=== PATIENT | female | born 1990 | race Hispanic/Latino ===

== ENCOUNTER 2019-07-20 11:45 | Inpatient (IN) ==
[2019-07-20 12:09] LABS: URINE SOURCE CLEAN CATCH
[2019-07-20 12:15] LABS: BILIRUBIN URINE NEGATIVE (NEGATIVE); BLOOD URINE MODERATE (NEGATIVE); COLOR YELLOW; GLUCOSE URINE NEGATIVE (NEGATIVE); KETONE URINE NEGATIVE (NEGATIVE); LEUKOCYTES URINE NEGATIVE (NEGATIVE); NITRITE URINE NEGATIVE (NEGATIVE); PROTEIN URINE 70 mg/dL (NEGATIVE); SP GRAVITY URINE 1.024; TURBIDITY URINE HAZY (CLEAR); UROBILINOGEN URINE NORMAL (NORMAL)
[2019-07-20 12:16] LABS: UR EPITHELIAL CELLS >10 /HPF (<10); URINE BACTERIA NEGATIVE /HPF; URINE RBC 20-40 /HPF (<10); URINE WBC <10 /HPF (<10)
[2019-07-20] MEDS ORDERED: TYLENOL PO ONE ×2 (13:05→18:31)
[2019-07-20] MEDS ORDERED: NS 1,000 ML IV ONE ×2 (13:07→15:17)
[2019-07-20 13:25] LABS: BASO# 0.03 X1000 (0.0-0.2); BASO% 0.2 % (0.0-0.8); EOS# 0.01 X1000 (0.0-0.7); EOS% 0.1 % (0.0-10.0); HEMATOCRIT 35.2 % (37.0-47.0); HEMOGLOBIN 11.1 g/dL (12.0-16.0); IMM GRAN# 0.07 X1000 (0.0-0.04); IMM GRAN% 0.4 % (0.0-0.5); LYMPH# 1.37 X1000 (1.2-3.4); MCHC 31.5 g/dL (33-37); MONO# 0.95 X1000 (0.11-0.59); MONO% 4.9 % (1.7-9.3); MPV 9.9 FL (7.4-10.4); NEUT# 17.14 X1000 (1.4-6.5); NEUT% 87.4 % (42.2-75.2); PLT 295 X1000 (130-400); RBC 4.82 XMIL (4.2-5.4); RDW 15.8 % (11.5-14.5); WBC 19.57 X1000 (4.8-10.8)
--- NOTE | 2019-07-20 13:32 | Diag Imaging Result Doc PS360 ---
EXAM: CHEST-1 VIEW 07/20/2019 HISTORY: fever TECHNIQUE: AP portable upright at 1319 COMMENT: The inspiration is suboptimal. There are no previous studies. IMPRESSION: No evidence of acute disease. Electronically signed by Dev Gomez 07/20/2019 1:30 PM
[2019-07-20 14:00] LABS: AGAP 13; ALBUMIN 4.4 g/dL (3.5-5.0); ALKALINE PHOSPHATASE 142 U/L (32-104); BUN 6 mg/dL (8-22); CALCIUM 9.3 mg/dL (8.8-10.2); CHLORIDE 100 mmol/L (98-107); COSMO 270; CREATININE 0.7 mg/dL (0.5-0.9); ESTIMATED GFR > 60; GLUCOSE 108 mg/dL (70-104); GOT 46 U/L (10-30); GPT 86 U/L (10-36); POTASSIUM 3.6 mmol/L (3.5-5.1); SODIUM 136 mmol/L (136-145); TCO2 23 mmol/L (25-35); TOTAL BILIRUBIN 0.42 mg/dL (0.20-1.00); TOTAL PROTEIN 8.7 g/dL (6.3-8.3)
--- NOTE | 2019-07-20 15:05 | Diag Imaging Result Doc PS360 ---
EXAM: CT ABD/PELVIS W/IV CONT ONLY 07/20/2019 HISTORY: pain, temp 103 TECHNIQUE: This exam was performed using automated exposure control, adjustment of mA or kV according to patient size, and/or use of iterative reconstruction technique. COMMENT: There are no previous studies available for comparison. There are platelike atelectatic changes present in the lung bases particularly the right lower lobe posterior costophrenic sulcus. The liver is slightly hypodense suggesting fatty change. The spleen and adrenal glands are within normal limits. The gallbladder is slightly distended but there is no apparent inflammation and no definite stones are present. The pancreas is unremarkable. There is some fecal debris in the colon without evidence of dilatation. There are some slightly distended jejunal loops in the left abdomen. The duodenum and ileum are not distended. The aorta is not distended. There is no evidence of significant adenopathy. The kidneys are without evidence of hydronephrosis or mass. Pelvis: The appendix is normal in appearance. There is a cyst in the left ovary measuring over 2 cm. No significant free fluid is present. The urinary bladder is slightly distended. There is no evidence of wall thickening or stones. There are changes in the subcutaneous fat over the anterior pelvis suggesting previous Pfannenstiel incision. The regional skeleton is intact. IMPRESSION: 1. Minimal atelectasis right lower lobe. 2. Mild constipation. The possibility of minimal enteritis cannot be excluded. 3. Hepatic steatosis. Electronically signed by Dev Gomez 07/20/2019 3:02 PM
[2019-07-20] MEDS ORDERED: ROCEPHIN 2 GM in NS 50 ML IV ONE (15:24)
--- NOTE | 2019-07-20 16:55 | PROVIDER DOCUMENTATION ---
This chart was entered by Mary Qiu Scribe, acting as scribe for Efren Aguilar MD. HPI-Female /OB/Breast - General Chief Complaint: Abdominal Pain Stated Complaint: STOMACH PAIN Time Seen by Provider: 07/20/19 12:34 Source: reports: deaf interpreter Allergies/Adverse Reactions: Patient Allergies Allergy/AdvReac Type Severity Reaction Status Date / Time No Known Allergies Allergy Verified 07/20/19 16:07 - History of Present Illness-Female /OB Nature of Presenting Problem: Patient is a 29 year old female who presents with generalized lower abdominal pain. States fever and irregular vaginal bleeding with pain. 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 States last menstrual period was 2 weeks ago. Reports being seen at OB clinic prior to arrival. Does patient report she is ?: No Location of complaint: reports: other (generalized lower) Radiation: reports: none Quality of Pain: reports: aching Severity in ED: reports: mild Onset/Duration: reports: unsure Timing: reports: still present Context/Activities at Onset: reports: light activity Vaginal Symptoms: reports: abnormal bleeding Associated Symptoms: reports: fever/chills (fever) Similar Symptoms Previously?: Yes Recently seen or treated by another doctor?: Yes - LMP/ History Menstrual Status: irregular Review of Systems - Adult - REVIEW OF SYSTEMS - ADULT Constitutional: reports: see HPI, fever Eyes: reports: no symptoms reported Ears, Nose, Mouth & Throat: reports: no symptoms reported Cardiovascular: reports: no symptoms reported Respiratory: reports: no symptoms reported Gastrointestinal: reports: see HPI, abdominal pain (generalized lower) Genitourinary: reports: see HPI, other (irregular vaginal bleeding) Musculoskeletal: reports: no symptoms reported Integumentary: reports: no symptoms reported Neurological: reports: no symptoms reported Psychiatric: reports: no symptoms reported Endocrine: reports: no symptoms reported Hematologic/Lymphatic: reports: no symptoms reported Allergic/Immunologic: reports: no symptoms reported All Other Systems: Reviewed and Negative Past History - Adult - PAST MEDICAL HISTORY-ADULT Review of Records: reports: Old Records Reviewed, Nursing Assessment Review, Medications Reviewed, Social history reviewed & non-contributory. Major Childhood Illnesses: reports: denies history Cardiovascular: reports: denies history Respiratory: reports: denies history Gastrointestinal: reports: denies history Obstetrical/Gynecological: reports: denies history Genitourinary: reports: denies history Musculoskeletal: reports: denies history Neurological: reports: denies history Endocrine/Immune: reports: denies history Other Conditions: reports: denies history - PRIOR SURGERIES/PROCEDURES Surgical/Procedure History: reports: reviewed, not pertinent, other (tumor removal from right ovary) - IMMUNIZATION STATUS Childhood Immunizations: See Nurse Assessment Flu Vaccine: See Nurse Assessment - FAMILY HISTORY Family History: reviewed, not pertinent - SOCIAL HISTORY Smoking: denies Substance Use: denies Living Situation: family Physical Exam-General - PHYSICAL EXAM-ADULT Initial Vital Signs Reviewed: Yes - CONSTITUTIONAL General Appearance: alert, no apparent distress - HEAD, EARS, NOSE, MOUTH & THROAT HENMT: normocephalic/atraumatic, moist mucous membranes - RESPIRATORY Respiratory: chest non-tender, lungs clear, normal breath sounds - CARDIOVASCULAR Cardiovascular: regular rate, rhythm - GASTROINTESTINAL (ABDOMEN) Abdominal Exam: normal bowel sounds, non tender, soft - MUSCULOSKELETAL Extremity: non-tender, normal inspection - SKIN Integumentary: normal color, normal turgor, warm/dry - NEUROLOGIC Neurologic: grossly normal - PSYCHIATRIC Psych/Mental Status: normal mood/affect, normal thought content, normal thought process, oriented x 3 Progress - PLAN OF CARE/RESULTS Progress/Plan/Lab Results: Vital Signs - 8 hr 07/20/19 11:48 07/20/19 16:52 Temperature 100.1 F H 98.8 F Pulse Rate 110 H Respiratory Rate 16 Blood Pressure 123/67 O2 Sat by Pulse Oximetry 99 Bedside Urine ED: Urine Bedside Start: 07/20/19 11:57 Freq: NOW Status: Active Protocol: Activity Type Activity Date Activity User E-Sign Co-Sign Detail Recorded Client Recorded Date Recorded By Document 07/20/19 12:05 [id number] 07/20/19 12:05 [id number] 07/20/19 12:05 Point of Care [Bedside Point of Care] -Lot # [id number] - Results Negative -Control Line Visible? Yes 07/20/19 11:55 Influenza Screen - Final Nasopharyngeal Laboratory Results - last 24 hr 07/20/19 07/20/19 07/20/19 12:05 13:08 13:08 WBC 19.57 H RBC 4.82 Hgb 11.1 L Hct 35.2 L MCV 73.0 L MCH 23.0 L MCHC 31.5 L RDW Std Deviation 15.8 H Plt Count 295 MPV 9.9 Immature Gran % (Auto) 0.4 Neut % (Auto) 87.4 H Lymph % (Auto) 7.0 L Sharp % (Auto) 4.9 Eos % (Auto) 0.1 Baso % (Auto) 0.2 Immature Gran # (Auto) 0.07 H Neut # (Auto) 17.14 H Lymph # (Auto) 1.37 Sharp # (Auto) 0.95 H Eos # (Auto) 0.01 Baso # (Auto) 0.03 Sodium 136 Potassium 3.6 Chloride 100 Carbon Dioxide 23 L Anion Gap 13 BUN 6 L Creatinine 0.7 Estimated GFR/1.73 m2 > 60 BUN/Creatinine Ratio 9 Glucose 108 H Calculated Osmolality 270 Calcium 9.3 Total Bilirubin 0.42 AST 46 H ALT 86 H Alkaline Phosphatase 142 H Total Protein 8.7 H Albumin 4.4 Globulin 4.3 Albumin/Globulin Ratio 1.0 Urine Source CLEAN CATCH Urine Color YELLOW Urine Turbidity HAZY Urine pH 6.0 Ur Specific Kersey 1.024 Urine Protein 70 A Ur Glucose (Stick) NEGATIVE Ur Ketones (Stick) NEGATIVE Urine Blood MODERATE A Urine Nitrite NEGATIVE Urine Bilirubin NEGATIVE Urobilinogen Dipstick NORMAL Urine Leukocytes NEGATIVE Urine WBC (Auto) <10 Urine RBC (Auto) 20-40 A U Epithel Cells (Auto) >10 A Urine Bacteria (Auto) NEGATIVE Orders Category Date Time Status NEWS Score 2-4:Order NEWS Lactate Series NOW Care 07/20/19 15:17 Active Pelvic set up DIRECTED Care 07/20/19 12:36 Active UA [ED: Urine Bedside] NOW Care 07/20/19 11:57 Active CHEST-1 VIEW [RAD] Stat Exams 07/20/19 13:[address] ABD/PELVIS W/IV CONT ONLY [CT] Stat Exams 07/20/19 13:05 Completed BLOOD CULTURE [BLDCUL] Stat Lab 07/20/19 15:30 Results CBC WITH DIFF [HEME] Stat Lab 07/20/19 13:08 Completed CMP [COMPREHENSIVE METABOLIC PANEL] [CHEM] Stat Lab 07/20/19 13:08 Completed INFLUENZA SCREEN A/B Stat Lab 07/20/19 11:55 Completed UA NIMS W/REFLEX CULT [URINALYSIS] Stat Lab 07/20/19 12:05 Completed 0.9% Sodium Chloride Inj [Ns] 1,000 ml Med 07/20/19 13:07 Discontinued IV 999 mls/hr 0.9% Sodium Chloride Inj [Ns] 1,000 ml Med 07/20/19 15:17 Discontinued IV 999 mls/hr Acetaminophen [Tylenol] Med 07/20/19 13:05 Discontinued 650 mg PO NOW ONE CefTRIAXONE [Rocephin] 2 gm Med 07/20/19 15:24 Discontinued 0.9% Sodium Chloride Inj [Ns] 50 ml IV NOW Result Diagrams: 07/20/19 13:08 07/20/19 13:08 - REASSESSMENT Reassessment #1 Time Reassessed: 15:16 Status: other (patient is in no distress. tachycardic. lungs clear. abdomen is soft.) - XRAY 1 XRAY Study: Chest Impression: See EMR Report ( EXAM: CHEST-1 VIEW 07/20/2019 HISTORY: fever TECHNIQUE: AP portable upright at 1319 COMMENT: The inspiration is suboptimal. There are no previous studies. IMPRESSION: No evidence of acute disease. Electronically signed by Dev Gomez 07/20/2019 1:30 PM 07/20/19 1330 Interpreting Physician: Dev Gomez MD Dictated Date/Time: 07/20/19 1330 cc: Efren Aguilar MD; None,PCP) - CT/MRI 1 CT Study: Abdomen, Pelvis Impression: See EMR Report ( EXAM: CT ABD/PELVIS W/IV CONT ONLY 07/20/2019 HISTORY: pain, temp 103 TECHNIQUE: This exam was performed using automated exposure control, adjustment of mA or kV according to patient size, and/or use of iterative reconstruction technique. COMMENT: There are no previous studies available for comparison. There are platelike atelectatic changes present in the lung bases particularly the right lower lobe posterior costophrenic sulcus. The liver is slightly hypodense suggesting fatty change. The spleen and adrenal glands are within normal limits. The gallbladder is slightly distended but there is no apparent inflammation and no definite stones are present. The pancreas is unremarkable. There is some fecal debris in the colon without evidence of dilatation. There are some slightly distended jejunal loops in the left abdomen. The duodenum and ileum are not distended. The aorta is not distended. There is no evidence of significant adenopathy. The kidneys are without evidence of hydronephrosis or mass. Pelvis: The appendix is normal in appearance. There is a cyst in the left ovary measuring over 2 cm. No significant free fluid is present. The urinary bladder is slightly distended. There is no evidence of wall thickening or stones. There are changes in the subcutaneous fat over the anterior pelvis suggesting previous Pfannenstiel incision. The regional skeleton is intact. IMPRESSION: 1. Minimal atelectasis right lower lobe. 2. Mild constipation. The possibility of minimal enteritis cannot be excluded. 3. Hepatic steatosis. Electronically signed by Dev Gomez 07/20/2019 3:02 PM 07/20/19 1502 Interpreting Physician: Dev Gomez MD Dictated Date/Time: 07/20/19 1458 cc: Efren Aguilar MD; None,PCP) - CONSULTS/PCP/HOSPITALIST Notification #1 *Consult/PCP/Hospitalist*: ERMA Chavez for Hospitalist Time Discussed: 15:23 Reason/Comments: Dr. Aguilar consulted with Kathy about patient. Consult Disposition: Will see in ED, Admit Departure - Departure Date of Disposition Decision: 07/20/19 Time of Disposition Decision: 15:24 DIAGNOSIS: Abdominal pain, Fever, Leukocytosis Disposition: ADMITTED INPATIENT 09 Certified Medical Emergency: Emergent Condition: Stable Referrals and Follow-Ups: None,PCP [Primary Care Provider] - - Critical Care Note This patient required my direct & personal management of CC.: No Attestation - Physician/ RAHAT Attestation Patient care was provided by Advanced Practice Provider:: No The physician spent face to face time with patient:: Yes Advanced Practice Provider documentation review:: Supervising physician onsite and consulted in the evaluation and care of this patient. The physician did have a face to face encounter with the patient. This chart was documented by the indicated scribe, (Mary Qiu Scribe) and accurately reflects the services I performed and decisions made by me, Efren Aguilar MD, as attested by the provider's signature.
[2019-07-20] MEDS ORDERED: MEFOXIN 2 GM/D5W IV SCH (18:00)
[2019-07-20] MEDS: MEFOXIN 2 GM/D5W 2 GM/50 ML IVPB IV SCH (18:29)
[2019-07-20] MEDS ORDERED: TYLENOL ONE (18:38)
[2019-07-20] MEDS ORDERED: CELEBREX PO ONE (18:59)
--- NOTE | 2019-07-20 19:49 | HISTORY AND PHYSICAL ---
PRIMARY CARE PHYSICIAN: None. PRESENTING COMPLAINT: Lower abdominal pain. HISTORY OF PRESENTING COMPLAINT: Ms. Pacheco is a 29-year-old female with no past medical history, who refers to have had a right ovarian cyst removal somewhere May last year in [facility] and she was doing fine. For the past 2 months, she said she has been having some lower abdominal pain which has been progressively getting worse radiating to both hips. She went to an outpatient clinic. She was treated for UTI, but the symptoms continue to progress. She said yesterday she had a lot of fever and chills associated with lower abdominal pain, so she came to the emergency room. She denies any urinary symptoms. She does have some vaginal flow. Upon presenting to the emergency room, she was found to have a temperature of 101.1 degrees with a pulse rate of 110, respirations 16, and blood pressure is 123/67. PAST MEDICAL HISTORY: None. SURGICAL HISTORY: Four times delivery and bilateral tubal ligation with the last . The patient also recently had a right ovarian cyst removal. FAMILY HISTORY: Unremarkable. SOCIAL HISTORY: The patient is , has 4 kids. 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 She denies any smoking or alcohol use. No drug use. ALLERGIES: None. REVIEW OF SYSTEM: Fourteen point review of systems conducted with Ms. Pacheco is unremarkable except what we have in the HPI. PHYSICAL EXAM: GENERAL: Ms. Pacheco is 29-year-old female. She is in bed no distress. HEENT: Mucosa is pink and moist. Anicteric. Acyanotic. NECK: Supple. There is no JVD. Head is normocephalic and atraumatic. RESPIRATORY SYSTEM: There is good air entry bilaterally. No crepitations. No rhonchi. No accessory muscle use. CARDIOVASCULAR: Regular rate and rhythm. There is no murmurs, no rubs, no gallops. GI: Abdomen is soft, some tenderness in the lower abdomen. There is infraumbilical surgical scar. There is also a horizontal lying scar from previous surgeries. EXTREMITIES: No pedal edema. Distal pulses present. CATHETERIZATION LABORATORY TECHNICIAN: Patient is awake, alert, oriented. There is no focal deficit. The patient's power is 5/5 in all extremities. Sensation is intact. Cranial nerves 2 to 12 have been grossly examined and is unremarkable. : The patient's system was examined with nurse Telma at the bedside as the dialysis chief equipment technician. Vulva was unremarkable. Upon introducing the speculum, there was a creamish discharge in the vaginal huber as well as from the cervical os. The bimanual digital exam was positive for cervical motion tenderness. No adnexal mass was palpated. The vaginal discharge was sample for cultures and wet prep. IMAGING STUDIES: A CT scan of the abdomen shows mild atelectasis right lower lobe. There was mild constipation. There is hepatic steatosis. X-ray of the chest showed no evidence of acute disease. LABORATORY DATA: Has been reviewed. WBC is 19.57, hemoglobin is 11.1, platelet count of 295,000. Chemistry is also reviewed completely with a within normal range. LFTs minimally elevated. ASSESSMENT: Ms. Pacheco is a 29-year-old who has been having lower abdominal pain associated with fever and chills. No urinary symptoms. The patient's exam is positive for cervical motion tenderness all concerning for pelvic inflammatory disease. 1. Sepsis, most likely due to underlying pelvic inflammatory disease. 2. Suspected pelvic inflammatory disease. The patient's vaginal cultures have all been done. We will start her on cefoxitin with doxycycline and wait for all the cultures. 3. Microcytic anemia. We will do iron studies. 4. Transaminitis, most likely due to steatohepatitis with CT scan showing hepatic steatosis. cc: Memo Orozco MD MTD
[2019-07-20] MEDS: DOXYCYCLINE 100 MG in NS 250 ML IV SCH (20:51)
[2019-07-20] MEDS: NS 1,000 ML IV SCH (20:51)
[2019-07-21] MEDS: MEFOXIN 2 GM/D5W 2 GM/50 ML IVPB IV SCH ×3 (03:31→18:02)
[2019-07-21 05:28] LABS: BASO# 0.03 X1000 (0.0-0.2); BASO% 0.2 % (0.0-0.8); EOS# 0.06 X1000 (0.0-0.7); EOS% 0.4 % (0.0-10.0); HEMOGLOBIN 9.6 g/dL (12.0-16.0); IMM GRAN% 0.6 % (0.0-0.5); LYMPH# 2.65 X1000 (1.2-3.4); LYMPH% 16.7 % (20.5-51.1); MCH 22.8 PG (27-31); MCV 73.6 FL (81-99); MONO# 1.36 X1000 (0.11-0.59); MONO% 8.6 % (1.7-9.3); MPV 9.8 FL (7.4-10.4); NEUT# 11.68 X1000 (1.4-6.5); NEUT% 73.5 % (42.2-75.2); PLT 287 X1000 (130-400); RBC 4.21 XMIL (4.2-5.4); RDW 15.8 % (11.5-14.5); WBC 15.88 X1000 (4.8-10.8)
[2019-07-21 05:55] LABS: BANDS 1 % (0-1); BASO 1 % (0-1); LYMPHS 16 % (21-51); MONO 1 % (1-9); SEGS 78 % (42-75)
[2019-07-21 05:56] LABS: MICROCYTOSIS 1+
[2019-07-21 06:07] LABS: TSH 2.4 uIUmL (0.27-4.20)
[2019-07-21] MEDS: DOXYCYCLINE 100 MG in NS 250 ML IV SCH ×2 (06:28→18:46)
[2019-07-21 08:08] LABS: AGAP 11; ALB/GLOB RATIO 1.2; ALKALINE PHOSPHATASE 120 U/L (32-104); BUN 5 mg/dL (8-22); CALCIUM 8.5 mg/dL (8.8-10.2); CHLORIDE 103 mmol/L (98-107); COSMO 267; CREATININE 0.5 mg/dL (0.5-0.9); ESTIMATED GFR > 60; GLUCOSE 100 mg/dL (70-104); GOT 38 U/L (10-30); GPT 64 U/L (10-36); IRON SATURATION 4 %; POTASSIUM 3.5 mmol/L (3.5-5.1); SODIUM 135 mmol/L (136-145); TCO2 21 mmol/L (25-35); TIBC 437 ug/dL; TOTAL BILIRUBIN 0.21 mg/dL (0.20-1.00); TOTAL IRON 17 ug/dL (49-151); TOTAL PROTEIN 7.4 g/dL (6.3-8.3); UNBOUND IRON 420 ug/dL (112-346)
[2019-07-21] MEDS: CELEBREX PO SCH (08:51)
--- NOTE | 2019-07-21 14:03 | PROGRESS NOTE ---
DATE: 07/21/2019 SUBJECTIVE: I have seen and examined Ms. Pacheco today, Ms. Pacheco refers to be doing well. She said her lower abdomen pain has significantly improved. Overnight she did have a temperature of 102.9 degrees yesterday at 1829. OBJECTIVE: Her current vitals blood pressure 107/55, pulse of 81, respiration is 20, temperature is 98.5 degrees, patient is saturating 100% on room air.General: Ms. Pacheco is a 29-year-old female she was sitting up in a chair no distress, mucosa is pink and moist. Anicteric. Acyanotic. Neck: Supple. Chest: Clear to auscultation. No crepitations, no rhonchi. Cardiovascular: Regular rate and rhythm, there was no murmurs, no rubs, no gallops. Abdomen: Was soft, minimally tender in the lower abdomen. There is infraumbilical surgical scar from previous surgery. 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 : Was not examined today. LINE ORDERING CLINICIAN: Patient is awake, alert, oriented. No focal deficit. LABORATORY DATA: WBC is down to 15.88, hemoglobin is 9.9, platelet count of 287,000. Chemistry is also reviewed unremarkable. Patient has significant remarkable iron deficiency. So far blood cultures is pending. The wet prep from the vaginal swab shows no clue cells and no Trichomonas, there is occasional white cell blot, there was no yeast. ASSESSMENT: 1. Sepsis improving. 2. Pelvic inflammatory disease. Patient continues to be on antimicrobial coverage. We are pending the cultures. 3. Microcytic anemia secondary to iron deficiency, patient will be started on iron replacement therapy. 4. Transaminitis secondary to steatohepatitis. Liver function tests are trending down. 5. Overweight with body mass index of 28.5. Weight management advised. So in general I think Ms. Pacheco is significantly better. Unfortunately she did have a temperature yesterday. I think is reasonable to observe her 24 hours, get the blood cultures back and make sure there is nothing that we are missing. cc: Memo Orozco MD MTDD
[2019-07-21] MEDS: NS 1,000 ML IV SCH (15:20)
[2019-07-22] MEDS: MEFOXIN 2 GM/D5W 2 GM/50 ML IVPB IV SCH ×2 (01:56→10:07)
[2019-07-22] MEDS: NS 1,000 ML IV SCH ×2 (01:57→14:31)
[2019-07-22] MEDS: DOXYCYCLINE 100 MG in NS 250 ML IV SCH (06:00)
[2019-07-22 09:01] LABS: AGAP 11; BUN 5 mg/dL (8-22); CALCIUM 8.7 mg/dL (8.8-10.2); CHLORIDE 105 mmol/L (98-107); COSMO 279; CREATININE 0.5 mg/dL (0.5-0.9); ESTIMATED GFR > 60; GLUCOSE 106 mg/dL (70-104); PHOSPHORUS 2.4 mg/dL (2.7-4.5); POTASSIUM 3.7 mmol/L (3.5-5.1); SODIUM 141 mmol/L (136-145); TCO2 25 mmol/L (25-35)
[2019-07-22 09:21] LABS: BASO# 0.04 X1000 (0.0-0.2); BASO% 0.3 % (0.0-0.8); EOS# 0.26 X1000 (0.0-0.7); EOS% 1.9 % (0.0-10.0); HEMATOCRIT 31.6 % (37.0-47.0); HEMOGLOBIN 9.9 g/dL (12.0-16.0); IMM GRAN# 0.07 X1000 (0.0-0.04); IMM GRAN% 0.5 % (0.0-0.5); LYMPH# 3.47 X1000 (1.2-3.4); LYMPH% 25.9 % (20.5-51.1); MCH 23.5 PG (27-31); MCHC 31.3 g/dL (33-37); MCV 74.9 FL (81-99); MONO# 1.05 X1000 (0.11-0.59); MONO% 7.8 % (1.7-9.3); MPV 10.5 FL (7.4-10.4); NEUT% 63.6 % (42.2-75.2); PLT 307 X1000 (130-400); RBC 4.22 XMIL (4.2-5.4); RDW 15.9 % (11.5-14.5); WBC 13.39 X1000 (4.8-10.8)
[2019-07-22] MEDS: CELEBREX PO SCH (10:07)
[2019-07-22 11:10] VITALS: BP 104/42
[2019-07-22] MEDS ORDERED: FLU VACCINE IM ONE (14:48)
--- NOTE | 2019-07-23 09:18 | DISCHARGE SUMMARY ---
ADMISSION DATE: 07/20/2019 DISCHARGE DATE: 07/22/2019 DISPOSITION: Home. FOLLOWUP: Patient's PCP. CONSULTATIONS DURING THIS ADMISSION: None. IMAGING STUDIES OF SIGNIFICANCE: A CT scan of the abdomen and pelvis did show mild atelectasis, right lower lobe pneumonia, mild constipation, minimal enteritis cannot be excluded, hepatic steatosis. ADMISSION DIAGNOSES: 1. Sepsis. 2. Suspected pelvic inflammatory disease. 3. Microcytic anemia. 4. Transaminitis. DISCHARGE DIAGNOSES: 1. Sepsis secondary to pelvic inflammatory disease. 2. Acute pelvic inflammatory disease. Cultures so far have been negative. GC and Chlamydia serologies have also been negative. The patient has improved significantly with management. 3. Microcytic anemia secondary to iron deficiency. 4. Transaminitis due to steatohepatitis. 5. Overweight with body mass index of 28.5. DISCHARGE MEDICATIONS: 1. Celebrex 200 mg p.o. daily. 2. Doxycycline 100 mg b.i.d. 3. Metronidazole 500 mg b.i.d. PRESENTING COMPLAINT: Lower abdominal pain. HISTORY OF PRESENTING COMPLAINT: Ms. Pacheco is a 29-year-old, female, who presented to the emergency room because of lower abdominal pain associated with some vaginal discharge. She is also referred to have had some elevation in her temperature. Upon presentation, she was found to have a temperature of 100.1 degrees, that went up to 102.9 later on during the hospital course. Ms. Pacheco was admitted for sepsis syndrome, PID. HOSPITAL COURSE: Ms. Pacheco improved during the hospital course. She was started on broad- spectrum IV antibiotics. Cultures were done, came back negative for 48 hours. The vaginal wet prep was also negative. GC with Chlamydia serology is also negative. She refers to be feeling a whole lot better from symptom standpoint. She has been 48 hours afebrile. Other vitals are stable. We think she is okay to be discharged. She was found to be remarkably anemic with iron deficiency. She has been replaced. She has been advised to follow up with her primary care doctor. She has also been advised to get iron supplements over the counter. All the discharge instructions have been discussed with her. She voiced understanding. Time spent for discharge is 35 minutes. Ms. Pacheco is also advised that she will need an PRINCIPAL DEVELOPER evaluation after the treatment. The was at the bedside at the time of the encounter, and he also voiced understanding of the recommendations. cc: Memo Orozco MD MTDD
== END 2019-07-22 15:58 | disposition home or self-care (01) | DRG 872 ==
LOC: ED 11:45 → 3N 18:07
PROVIDERS: ATTEND Internal Medicine